=== PATIENT | male | born 1995 | race Caucasian/White ===

== ENCOUNTER 2017-09-02 07:44 | Emergency (ER) | payer BC ==
[~2017-09-02] VITALS: Ht 177.8 cm; Wt 63.6 kg
[2017-09-02 07:48] VITALS: BP 119/57
[2017-09-02] MEDS ORDERED: SINGULAIR 110 MG/TAB PO (07:53)
[2017-09-02 08:34] LABS: BASO % 0.3 % (0.0-2.0); EOS # 0.3 (0.0-0.7); EOS % 4.3 % (0-4.0); GRAN # 2.8 (1.4-6.5); GRAN % 46.7 % (42.2-75.2); HEMATOCRIT 40.5 % (42.0-52.0); HEMOGLOBIN 14.1 g/dl (13.5-18.0); LYMPH # 2.4 (1.2-3.4); LYMPH % 40.7 % (20.0-51.0); MEAN CELL VOLUME 88 fl (80.0-100.0); MEAN CORPUSCULAR HEMOGLOBIN 31 pg (27.0-31.0); MEAN CORPUSCULAR HGB CONC 35 g/dl (33.0-37.0); MEAN PLATELET VOLUME 10.5 fl (7.4-10.4); MONO # 0.5 (0.1-0.6); MONO % 7.7 % (1.7-9.3); PLATELET COUNT 174 K/mm3 (130-400); RED BLOOD COUNT 4.59 M/mm3 (4.20-5.60); REDCELL DISTRIBUTION WIDTH-CV 12.5 % (11.5-14.5)
[2017-09-02 08:41] LABS: ALBUMIN 4.3 gm/dL (3.5-5.0); BILIRUBIN,TOTAL 0.3 mg/dL (0.0-1.0); CALCIUM 9.3 mg/dL (8.4-10.2); CREATININE, serum 0.86 mg/dL (0.66-1.25); TOTAL PROTEIN 6.7 gm/dL (6.4-8.2)
[2017-09-02] MEDS ORDERED: ZITHROMAX Z PA250 MG PO (08:43)
[2017-09-02 09:28] VITALS: PULSE 58; TEMP 97
== END 2017-09-02 09:00 | disposition home or self-care (01) ==
LOC: COL.ER 07:44
PROVIDERS: Physician Assistant
DX: J40 Bronchitis, not specified as acute or chronic (principal); F17.210 Nicotine dependence, cigarettes, uncomplicated